=== PATIENT | female | born 1980 | race Caucasian/White ===

== ENCOUNTER 2023-02-01 07:58 | Outpatient (CLI) | payer OTHER, SELFPAY ==
--- NOTE | 2023-02-01 08:15 | CRLHL7_ITS ---
For Patients: As a result of the Century Cures Act, medical imaging exams and procedure reports are released immediately into your electronic medical record. You may view this report before your referring provider. If you have questions, please contact your health care provider. CLINICAL HISTORY: Frequent bleeding TECHNIQUE: Real time, young scale images were acquired of the pelvis using a transabdominal and transvaginal approach. FINDINGS: The uterus measures 9.5 x 5.1 x 6.3 centimeters endometrium measures 1.1 centimeter. Intramural fibroid measuring 2.2 x 0.9 x 1.5 centimeters there may be impingement the endometrium. Normal left ovary measuring 4.6 x 2 3 x 2.2 centimeters. Normal right ovary measuring 2.4 x 2.3 x 2.0 centimeters IMPRESSION: 1.1 centimeter endometrium. Intramural fibroid measuring 2.2 centimeters may be impinging on the endometrium. Dictated by Mery Martinez MD @ 02/02/2023 2:13:47 PM (Electronically Signed)
== END 2023-02-01 07:59 | disposition home or self-care (01) ==
PROVIDERS: Visit Provider Obstetrics & Gynecology
DX: N92.0 Excessive and frequent menstruation with regular cycle (principal); D25.1 Intramural leiomyoma of uterus
CPT/HCPCS: 76830; 76856

== ENCOUNTER 2023-02-01 08:59 | Outpatient (CLI) | payer OTHER, SELFPAY | END 2023-02-01 09:00 | disposition home or self-care (01) | PROVIDERS: Visit Provider Obstetrics & Gynecology | DX: Z00.00 Encounter for general adult medical examination without abnormal findings (principal); N92.0 Excessive and frequent menstruation with regular cycle; D25.1 Intramural leiomyoma of uterus | CPT/HCPCS: 76830; 80061; 84146; 84443 ==

== ENCOUNTER 2023-03-13 07:03 | Outpatient (CLI) | payer OTHER, SELFPAY ==
--- NOTE | 2023-03-13 07:15 | CRLHL7_ITS ---
For Patients: As a result of the Cures Act, medical imaging exams and procedure reports are released immediately into your electronic medical record. You may view this report before your referring provider. If you have questions, please contact your health care provider. Examination: US abdominal aorta Indication: Abdominal aortic aneurysm screening. Technique: White scale and color Doppler images of the aorta and common iliac arteries are obtained. Comparison: None Findings: Proximal aorta: 2.2 x 2.3 cm Mid aorta: 1.8 x 2.0 cm Distal aorta: 1.6 x 2.2 cm Right common iliac artery: 1.0 x 1.1 cm Left common iliac artery: 1.0 x 1.1 cm Impression: No abdominal aortic aneurysm. Dictated by Gonzalez Coatse MD @ 03/13/2023 8:40:02 AM (Electronically Signed)
== END 2023-03-13 07:04 | disposition home or self-care (01) ==
LOC: US 07:05
PROVIDERS: Visit Provider Nurse Practitioner Family
DX: Z13.6 Encounter for screening for cardiovascular disorders (principal); R10.9 Unspecified abdominal pain
CPT/HCPCS: 76775

== ENCOUNTER 2023-04-13 15:30 | Outpatient (CLI) | payer OTHER, SELFPAY ==
--- NOTE | 2023-04-13 15:40 | MM_ITS ---
Patient: NINI VARGAS Facility:?[facility] Patient ID:?[id number] Site Patient ID:?[id number]. Site :?[id number] Study:?XRay-Breast Bilateral 3D W/CAD-04/13/2023 3:53:57 PM Ordering Physician:America Solares Final Report: SCREENING MAMMOGRAM WITH COMPUTER-AIDED DETECTION AND TOMOSYNTHESIS TECHNIQUE: CC and MLO views were obtained. These mammographic images have been obtained using full-field digital technique. These mammographic images were interpreted with the benefit of computer-aided detection. Breast Tomosynthesis was used in this interpretation. COMPARISON FILM: Baseline. FINDINGS: The breasts are heterogeneously dense, which may obscure small masses IMPRESSION: There is no radiographic evidence for malignancy. ASSESSMENT: BI-RADS Category 1: Negative RECOMMENDATION: Routine screening mammogram in 1 year. A lay language report of this examination will be provided to the patient. Gonzalez Coates M.D. Diagnostic Radiologist [email or web address] JUSTYN/[email or web address] / be/Dictated by: Gonzalez Coates MD @ 04/14/2023 8:59:00 AM Signed by:?Gonzalez Coates MD @04/15/2023 10:15:03 AM (Electronic Signature)
== END 2023-04-13 15:31 | disposition home or self-care (01) ==
LOC: MAMMO 15:30
PROVIDERS: Visit Provider Obstetrics & Gynecology
DX: Z12.31 Encounter for screening mammogram for malignant neoplasm of breast (principal); R92.2 Inconclusive mammogram
CPT/HCPCS: 77063; 77067